=== PATIENT | male | born 2000 | race Caucasian/White ===

== ENCOUNTER 2018-08-21 20:57 | Emergency (ER) | payer BC ==
--- NOTE | 2018-08-21 21:19 | ER Report ---
History and Physical Time Seen By MD: 21:19 Hx. of Stated Complaint: patient states was driving 20mins ago, started to have painc attack, has sharp pain in left chest, numbness in hand, legs and face. HPI/ROS CHIEF COMPLAINT: Chest pain and shortness of breath, possible panic attack HISTORY OF PRESENT ILLNESS: This is a 18-year-old male. He was driving and started to have a panic attack. He has had these in the past although not this bad. He feels short of breath with chest pain. Some mild nausea with it as well. No fevers or chills, no sore throat runny nose or cough. Allergies: Coded Allergies: No Known Drug Allergies (Unverified , 08/21/18) Home Meds Active Scripts Hydroxyzine Hcl (HYDROXYZINE HCL) 25 Mg Tablet, 25 MG PO Q8H PRN for ANXIETY, #15 TAB 0 Refills Prov:RANDALL VILLALOBOS MD 08/22/18 Reviewed Nurses Notes: Yes Hx Substance Use Disorder: Yes (occassional marijauna use) Constitutional Vital Sign - Last 24 Hours 08/21/18 08/21/18 08/21/18 08/21/18 20:57 21:02 21:04 21:12 Temp 97.8 Pulse ??? 103 80 Resp 28 17 B/P (MAP) 150/108 (122) 150/108 Pulse Ox 100 99 O2 Delivery Room Air 08/21/18 08/21/18 08/21/18 08/21/18 21:27 21:30 21:42 21:57 Pulse 108 99 72 Resp 49 35 10 B/P (MAP) 140/106 (117) Pulse Ox 99 100 98 08/21/18 08/21/18 08/21/18 08/21/18 22:00 22:12 22:27 22:30 Pulse 67 ??? Resp 10 12 B/P (MAP) 127/88 (101) 127/82 (97) Pulse Ox 88 95 08/21/18 08/21/18 08/21/18 08/21/18 22:39 22:42 22:47 23:00 Pulse 65 76 Resp 17 21 B/P (MAP) 134/76 (95) 111/101 (104) Pulse Ox 94 98 08/21/18 08/21/18 08/21/18 08/21/18 23:02 23:17 23:30 23:32 Pulse ? Resp 29 16 17 B/P (MAP) 163/59 (93) Pulse Ox 98 95 96 08/21/18 08/22/18 23:47 00:11 Pulse ??? Resp 11 B/P (MAP) 125/81 (96) Pulse Ox 92 Intake and Output 08/21/18 08/21/18 08/22/18 15:00 23:00 07:00 Intake Total 1000 ml Balance 1000 ml Physical Exam General Appearance: Alert, very anxious in acute distress. Nontoxic in appearance. Eyes: Pupils equal and round no injection. ENT: Normal oral mucosa. Moist mucous membranes. Tympanic membranes are normal. Normal posterior oropharynx. Normal nasal mucosa. Neck: Neck is supple and non tender. Respiratory: Lungs are clear to auscultation. Cardiac: regular rate and rhythm normal peripheral perfusion. Gastrointestinal: Abdomen is soft and non tender, no masses, bowel sounds normal. Musculoskeletal: Extremities have full range of motion. Non tender. Skin: No rashes or lesions. DIFFERENTIAL DIAGNOSIS: After history and physical exam differential diagnosis was considered for chest pain and shortness breath, possible anxiety attack, possible acute coronary syndrome, pulmonary infectious process etc. Medical Decision Making Data Points Result Diagram: 08/21/18213808/21/182138 Laboratory Hematology Test 08/21/18 21:39 Red Blood Count 5.26 M/uL (4.00-5.60) Mean Corpuscular Volume 96.0 fL (80.0-96.0) Mean Corpuscular Hemoglobin 33.1 pg (26.0-33.0) Mean Corpuscular Hemoglobin Concent 34.4 g/dL (32.0-36.0) Red Cell Distribution Width 13.2 % (11.5-14.5) Mean Platelet Volume 9.6 fL (7.2-11.1) Neutrophils (%) (Auto) 78.3 % (39.4-72.5) Lymphocytes (%) (Auto) 17.4 % (17.6-49.6) Monocytes (%) (Auto) 3.8 % (4.1-12.4) Eosinophils (%) (Auto) 0.2 % (0.4-6.7) Basophils (%) (Auto) 0.3 % (0.3-1.4) Nucleated RBC Relative Count (auto) 0.7 /100WBC Neutrophils # (Auto) 9.1 K/uL (2.0-7.4) Lymphocytes # (Auto) 2.0 K/uL (1.3-3.6) Monocytes # (Auto) 0.4 K/uL (0.3-1.0) Eosinophils # (Auto) 0.0 K/uL (0.0-0.5) Basophils # (Auto) 0.0 K/uL (0.0-0.1) Nucleated RBC Absolute Count (auto) 0.08 K/uL D-Dimer Quantitative (PE/DVT) < 0.27 ug/ml (0-0.50) Sodium Level 138 mmol/L (137-145) Potassium Level 3.8 mmol/L (3.5-5.0) Chloride Level 102 mmol/L (98-107) Carbon Dioxide Level 23 mmol/L (22-30) Blood Urea Nitrogen 11 mg/dl (9-21) Creatinine 0.90 mg/dl (0.66-1.25) Glomerular Filtration Rate Calc > 60.0 Random Glucose 108 mg/dl (75-110) Calcium Level 10.1 mg/dl (8.4-10.2) Total Bilirubin 0.5 mg/dl (0.2-1.3) Aspartate Amino Transf (AST/SGOT) 38 U/L (0-35) Alanine Aminotransferase (ALT/SGPT) 49 U/L (0-56) Alkaline Phosphatase 80 U/L (0-126) Troponin I < 0.012 ng/ml Total Protein 8.0 g/dl (6.3-8.2) Albumin 5.1 g/dl (3.5-5.0) Chemistry Test 08/21/18 21:39 White Blood Count 11.7 k/uL (4.5-11.0) Red Blood Count 5.26 M/uL (4.00-5.60) Hemoglobin 17.4 g/dL (14.0-18.0) Hematocrit 50.5 % (42.0-52.0) Mean Corpuscular Volume 96.0 fL (80.0-96.0) Mean Corpuscular Hemoglobin 33.1 pg (26.0-33.0) Mean Corpuscular Hemoglobin Concent 34.4 g/dL (32.0-36.0) Red Cell Distribution Width 13.2 % (11.5-14.5) Platelet Count 335 K/uL (150-450) Mean Platelet Volume 9.6 fL (7.2-11.1) Neutrophils (%) (Auto) 78.3 % (39.4-72.5) Lymphocytes (%) (Auto) 17.4 % (17.6-49.6) Monocytes (%) (Auto) 3.8 % (4.1-12.4) Eosinophils (%) (Auto) 0.2 % (0.4-6.7) Basophils (%) (Auto) 0.3 % (0.3-1.4) Nucleated RBC Relative Count (auto) 0.7 /100WBC Neutrophils # (Auto) 9.1 K/uL (2.0-7.4) Lymphocytes # (Auto) 2.0 K/uL (1.3-3.6) Monocytes # (Auto) 0.4 K/uL (0.3-1.0) Eosinophils # (Auto) 0.0 K/uL (0.0-0.5) Basophils # (Auto) 0.0 K/uL (0.0-0.1) Nucleated RBC Absolute Count (auto) 0.08 K/uL D-Dimer Quantitative (PE/DVT) < 0.27 ug/ml (0-0.50) Glomerular Filtration Rate Calc > 60.0 Calcium Level 10.1 mg/dl (8.4-10.2) Total Bilirubin 0.5 mg/dl (0.2-1.3) Aspartate Amino Transf (AST/SGOT) 38 U/L (0-35) Alanine Aminotransferase (ALT/SGPT) 49 U/L (0-56) Alkaline Phosphatase 80 U/L (0-126) Troponin I < 0.012 ng/ml Total Protein 8.0 g/dl (6.3-8.2) Albumin 5.1 g/dl (3.5-5.0) Coagulation Test 08/21/18 21:39 D-Dimer Quantitative (PE/DVT) < 0.27 ug/ml EKG/Imaging EKG Interpretation 12 lead EKG: Rhythm: Sinus tachycardia, rate 101 [place]: normal QRS: normal ST segments: normal Imaging HISTORY: Chest pain and shortness of breath DATE: 08/21/2018 10:18 PM TECHNIQUE: CHEST PA LAT COMPARISON: none FINDINGS: The cardiomediastinal silhouette is of normal size and contour. No pleural effusion. No pneumothorax. No consolidation. The lungs are adequately expanded. IMPRESSION: No acute findings. Report Dictated By: Jaiden Haas MD at 08/21/2018 10:55 PM ED Course/Re-evaluation Clinical Indication for ER IV: IV Access ED Course Patient had a dose of Ativan which significantly helped his anxiety. Workup for chest pain and shortness breath was otherwise negative. Reviewed this with the patient. Starting him on some hydroxyzine for anxiety. Decision to Disposition Date: Aug 22, 2018 Decision to Disposition Time: 00:23 Depart Departure Latest Vital Signs Vital Signs Date Time Temp Pulse Resp B/P (MAP) Pulse Ox O2 Delivery O2 Flow Rate FiO2 08/22/18 00:11 125/81 (96) 08/21/18 23:47 ??? 11 92 08/21/18 21:04 97.8 Room Air Impression: Primary Impression: Panic attack Condition: Improved Disposition: HOME OR SELF-CARE New Scripts Hydroxyzine Hcl (HYDROXYZINE HCL) 25 Mg Tablet 25 MG PO Q8H PRN for ANXIETY, #15 TAB 0 Refills Prov: RANDALL VILLALOBOS MD 08/22/18 Patient Instructions: Panic Attack (ED) RANDALL VILLALOBOS MD Aug 21, 2018 21:19
[2018-08-21] MEDS ORDERED: NS(*) 0.9% 1000 ML BAG 1,000 ML IV ONE (21:24)
[2018-08-21] MEDS ORDERED: PANTOPRAZOLE SOD 40 MG IV VIAL IVP ONE (21:25)
[2018-08-21] MEDS ORDERED: LORazepam 2 MG/ML VIAL IVP ONE (21:25)
[2018-08-21] MEDS ORDERED: ASPIRIN 81 MG CHEW PO ONE (21:25)
--- NOTE | 2018-08-21 21:54 | EKG ---
FACILITY: [facility] PATIENT NAME: SYLVIE BAINS : [id number] MR: [id number] V: [id number] EXAM DATE: ORDERING PHYSICIAN: RANDALL VILLALOBOS TECHNOLOGIST: KASEY Test Reason : CP Blood Pressure : / mmHG Vent. Rate : 101 BPM Atrial Rate : 101 BPM P-R Int : 128 ms QRS Dur : 072 ms QT Int : 322 ms P-R-T Axes : 085 092 047 degrees QTc Int : 417 ms Sinus tachycardia Otherwise normal ECG Significant artifact present No previous ECGs available Confirmed by Samm Bhat ([id number]) on 08/21/2018 10:50:35 PM Referred By: Confirmed By:Samm Felix
[2018-08-21 21:59] LABS: PLATELET COUNT, AUTOMATED 335 K/uL (150-450)
--- NOTE | 2018-08-21 23:00 | RADIOLOGY IMAGING REPORT ---
FACILITY: [facility] PATIENT NAME: Mark Telles : 2000 MR: [id number] V: [id number] EXAM DATE: ORDERING PHYSICIAN: RANDALL VILLALOBOS TECHNOLOGIST: Location: [facility] Patient: Mark Telles : 2000 Visit/Account:[id number] Date of Sevice: 08/21/2018 HISTORY: Chest pain and shortness of breath DATE: 08/21/2018 10:18 PM TECHNIQUE: CHEST PA LAT COMPARISON: none FINDINGS: The cardiomediastinal silhouette is of normal size and contour. No pleural effusion. No pne umothorax. No consolidation. The lungs are adequately expanded. IMPRESSION: No acute findings. Report Dictated By: Jaiden Haas MD at 08/21/2018 10:55 PM Report E-Signed By: Jaiden Haas MD at 08/21/2018 10:56 PM WSN:[id number]
[2018-08-22] MEDS ORDERED: HYDR-4225 PO (00:25)
[2018-08-22] MEDS ORDERED: hydrOXYzine 25 MG TAB TH 2 TAB/BOTTLE PO ONE (00:25)
[2018-08-22 00:30] VITALS: BP 115/76
== END 2018-08-22 00:37 | disposition home or self-care (01) ==
LOC: ER 21:15
DX: F41.0 Panic disorder [episodic paroxysmal anxiety] (principal)
CPT/HCPCS: 71046; 84484; 85025; 85379; 93005; 96361; 96374; 96375; 99284; C9113; J2060; J7030; 82040; 82247; 82310; 82374; 82435; 82565; 82947; 84075; 84132; 84155; 84295; 84450; 84460; 84520

== ENCOUNTER → 2018-09-07 | Outpatient (REF) | payer BC ==
[~2018-09-07] MED LIST: HYDR-4225 PO
[2018-09-07 14:18] LABS: PLATELET COUNT, AUTOMATED 299 K/uL (150-450)
== END ==
PROVIDERS: ATTEND Nurse Practitioner Family
DX: F41.1 Generalized anxiety disorder (principal); R53.83 Other fatigue
CPT/HCPCS: 82040; 82247; 82310; 82374; 82435; 82565; 82947; 84075; 84132; 84155; 84270; 84295; 84403; 84450; 84460; 84520; 85025

== ENCOUNTER 2018-10-25 03:53 | Emergency (ER) | payer BC ==
[2018-10-25] MEDS ORDERED: LORazepam 2 MG/ML VIAL IVP ONE (04:05)
[2018-10-25] MEDS ORDERED: NS(*) 0.9% 1000 ML BAG 1,000 ML IV ONE (04:05)
--- NOTE | 2018-10-25 04:18 | ER Report ---
History and Physical Time Seen By MD: 03:51 Hx. of Stated Complaint: PATIENT REPORTS ANXIETY AND "PANICK ATTACK" THAT STARTED AT 0200. HPI/ROS CHIEF COMPLAINT: I think im having a panic attack HISTORY OF PRESENT ILLNESS: PT states that tonight he took an on line exam and got an A. Went to his room to watch Netflicks and started feeling light headed, Sob, chest pain, tingling in his face and hands. Pt called his parents and told to go to the emergency room. PT states a similar episode happened this winter and he was seen in the emergency room and told it was anxiety. After the ED visit when he was home he saw his pcp who started him on zoloft and gave him a testosterone booster since his labs showed low T. PT has since stopped the zoloft because he did not like how he felt on the medication. PT states since t hen he has always felt "a little anxious" but this is the first time he has felt panic since first episode. Pt has not been sick. PT states he has not slept well for 2 days because of anxiety over tonights exam. REVIEW OF SYSTEMS: Constitutional: No fever, no chills. Eyes: No discharge. ENT: + throat tightness Cardiovascular: + chest pain, + palpitations. Respiratory: No cough, + shortness of breath. Gastrointestinal: No abdominal pain, no vomiting. Genitourinary: No hematuria. Musculoskeletal: No back pain. Skin: No rashes. Neurological: No headache, +light headed, numbness to hands and face Allergies: Coded Allergies: No Known Drug Allergies (Unverified , 10/25/18) Home Meds Active Scripts Lorazepam (ATIVAN) 0.5 Mg Tablet, 0.5 MG PO Q12H PRN for ANXIETY/INSOMNIA, #10 TAB Prov:ANISHA PERES DO 10/25/18 Discontinued Scripts Hydroxyzine Hcl (HYDROXYZINE HCL) 25 Mg Tablet, 25 MG PO Q8H PRN for ANXIETY, #15 TAB 0 Refills Prov:RANDALL VILLALOBOS MD 08/22/18 Past Medical/Surgical History Pmhx: panic attack, Low T Pshx: kajal Reviewed Nurses Notes: Yes Old Medical Records Reviewed: Yes Hx Substance Use Disorder: Yes (occassional marijauna use) Hx Alcohol Use: Yes (occasional etoh) Constitutional Vital Sign - Last 24 Hours 10/25/18 03:57 Temp 97.7 Pulse 98 Resp 24 B/P (MAP) 154/108 Pulse Ox 98 O2 Delivery Room Air Physical Exam General Appearance: The patient is alert but hyperventilating, has no immediate need for airway protection and no signs of toxicity. Eyes: Pupils equal and round no pallor or injection, EOMI ENT: no pharyngeal erythema or exudates, Mucous membranes are moist, TM are nl b/l Respiratory: There are no retractions, lungs are clear to auscultation, Increased resp rate Cardiovascular: Regular rate and rhythm. pulses are equal and symmetrical Gastrointestinal: Abdomen is soft and non tender, no masses, bowel sounds normal, no guarding, no rigidity or rebound Neurological: Cranial nerves II-XII grossly intact, no sensory or motor loss Skin: Warm and dry, no rashes. Musculoskeletal: Neck is supple non tender, no vertebral tenderness Extremities are nontender, nonswollen and have full range of motion. DIFFERENTIAL DIAGNOSIS: After history and physical exam differential diagnosis was considered for anxiety, electrolyte abnl, hyperventilation syndrome, acs, pe, ptx, anemia Medical Decision Making Data Points Result Diagram: 10/25/18 0408 10/25/18 0408 Laboratory Hematology Test 10/25/18 04:08 Red Blood Count 5.59 M/uL (4.00-5.60) Mean Corpuscular Volume 93.0 fL (80.0-96.0) Mean Corpuscular Hemoglobin 32.5 pg (26.0-33.0) Mean Corpuscular Hemoglobin Concent 34.9 g/dL (32.0-36.0) Red Cell Distribution Width 11.9 % (11.5-14.5) Mean Platelet Volume 9.5 fL (7.2-11.1) Neutrophils (%) (Auto) 71.5 % (39.4-72.5) Lymphocytes (%) (Auto) 19.8 % (17.6-49.6) Monocytes (%) (Auto) 7.9 % (4.1-12.4) Eosinophils (%) (Auto) 0.3 % (0.4-6.7) Basophils (%) (Auto) 0.5 % (0.3-1.4) Nucleated RBC Relative Count (auto) 0.0 /100WBC Neutrophils # (Auto) 6.6 K/uL (2.0-7.4) Lymphocytes # (Auto) 1.8 K/uL (1.3-3.6) Monocytes # (Auto) 0.7 K/uL (0.3-1.0) Eosinophils # (Auto) 0.0 K/uL (0.0-0.5) Basophils # (Auto) 0.0 K/uL (0.0-0.1) Nucleated RBC Absolute Count (auto) 0.00 K/uL D-Dimer Quantitative (PE/DVT) < 0.27 ug/ml (0-0.50) Sodium Level 135 mmol/L (137-145) Potassium Level 3.8 mmol/L (3.5-5.0) Chloride Level 100 mmol/L (98-107) Carbon Dioxide Level 21 mmol/L (22-30) Blood Urea Nitrogen 17 mg/dl (9-21) Creatinine 0.90 mg/dl (0.66-1.25) Glomerular Filtration Rate Calc > 60.0 Random Glucose 87 mg/dl (75-110) Calcium Level 10.3 mg/dl (8.4-10.2) Troponin I < 0.012 ng/ml Chemistry Test 10/25/18 04:08 White Blood Count 9.2 k/uL (4.5-11.0) Red Blood Count 5.59 M/uL (4.00-5.60) Hemoglobin 18.1 g/dL (14.0-18.0) Hematocrit 52.0 % (42.0-52.0) Mean Corpuscular Volume 93.0 fL (80.0-96.0) Mean Corpuscular Hemoglobin 32.5 pg (26.0-33.0) Mean Corpuscular Hemoglobin Concent 34.9 g/dL (32.0-36.0) Red Cell Distribution Width 11.9 % (11.5-14.5) Platelet Count 339 K/uL (150-450) Mean Platelet Volume 9.5 fL (7.2-11.1) Neutrophils (%) (Auto) 71.5 % (39.4-72.5) Lymphocytes (%) (Auto) 19.8 % (17.6-49.6) Monocytes (%) (Auto) 7.9 % (4.1-12.4) Eosinophils (%) (Auto) 0.3 % (0.4-6.7) Basophils (%) (Auto) 0.5 % (0.3-1.4) Nucleated RBC Relative Count (auto) 0.0 /100WBC Neutrophils # (Auto) 6.6 K/uL (2.0-7.4) Lymphocytes # (Auto) 1.8 K/uL (1.3-3.6) Monocytes # (Auto) 0.7 K/uL (0.3-1.0) Eosinophils # (Auto) 0.0 K/uL (0.0-0.5) Basophils # (Auto) 0.0 K/uL (0.0-0.1) Nucleated RBC Absolute Count (auto) 0.00 K/uL D-Dimer Quantitative (PE/DVT) < 0.27 ug/ml (0-0.50) Glomerular Filtration Rate Calc > 60.0 Calcium Level 10.3 mg/dl (8.4-10.2) Troponin I < 0.012 ng/ml Coagulation Test 10/25/18 04:08 D-Dimer Quantitative (PE/DVT) < 0.27 ug/ml EKG/Imaging EKG Interpretation nsr @ 86 with sinus arrhythmia Imaging napd ED Course/Re-evaluation Clinical Indication for ER IV: Hydration, IV Access ED Course Check labs, ekg and cxr. Will give fluids and ativan. 10/25/2018 4:41:58 am Pt reexamined. Pt feeling much better "I no longer have any tingling or numbness and no sob or cp". I suspect pts symptoms were related to panic attack. Decision to Disposition Date: Oct 25, 2018 Decision to Disposition Time: 04:52 Depart Departure Latest Vital Signs Vital Signs Date Time Temp Pulse Resp B/P (MAP) Pulse Ox O2 Delivery O2 Flow Rate FiO2 10/25/18 03:57 97.7 98 24 154/108 98 Room Air Impression: Primary Impression: Panic attack Additional Impression: Hyperventilating Condition: Improved Disposition: HOME OR SELF-CARE Referrals: [facility] New Scripts Lorazepam (ATIVAN) 0.5 Mg Tablet 0.5 MG PO Q12H PRN for ANXIETY/INSOMNIA, #10 TAB Prov: ANISHA PERES DO 10/25/18 Departure Forms: ER Transition Record, Medications Reconciliation, Off Work/School Form, School or Work Release?: School Number of days to be released: 1 Patient Portal Information Patient Instructions: Hyperventilation (ED), Panic Attack (ED) Additional Instructions: Your blood work, ekg and chest xray were stable. You had a panic attack. Recommend you follow up with a therapist. You may take one Ativan one every 12 hours as needed if episode reoccur Problem Qualifiers ANISHA PERES DO Oct 25, 2018 04:18
[2018-10-25 04:30] LABS: PLATELET COUNT, AUTOMATED 339 K/uL (150-450)
[2018-10-25] MEDS ORDERED: LORA-1455 PO (04:45)
--- NOTE | 2018-10-25 04:48 | RADIOLOGY IMAGING REPORT ---
FACILITY: [facility] [place] PATIENT NAME: Mark Telles : 2000 MR: [id number] V: [id number] EXAM DATE: ORDERING PHYSICIAN: ANISHA PERES TECHNOLOGIST: [facility] Patient: Mark Telles : 2000 Visit/Account:[id number] Date of Sevice: 10/25/2018 CHEST: Indication: Chest pain and dyspnea. Technique: Frontal and lateral views were obtained. Comparison: 08/21/2018 Skeletal and soft tissue structures: Intact and unremarkable. Heart and mediastinum: Within normal limits. Lung wu: Well expanded and clear. Pleural spaces: Unremarkable. Impression: No acute process or significant change. Report Dictated By: Danish Conteh MD at 10/25/2018 4:42 AM Report E-Signed By: Danish Conteh MD at 10/25/2018 4:45 AM WSN:[id number]
[2018-10-25 04:50] VITALS: BP 126/95
--- NOTE | 2018-10-25 04:57 | EKG ---
FACILITY: [facility] PATIENT NAME: SYLVIE BAINS : [id number] MR: [id number] V: [id number] EXAM DATE: ORDERING PHYSICIAN: ANISHA PERES TECHNOLOGIST: KASEY Test Reason : CP Blood Pressure : / mmHG Vent. Rate : 085 BPM Atrial Rate : 085 BPM P-R Int : 152 ms QRS Dur : 086 ms QT Int : 376 ms P-R-T Axes : 080 089 078 degrees QTc Int : 447 ms Normal sinus rhythm with sinus arrhythmia Normal ECG When compared with ECG of 21-AUG-2018 21:27, ST more elevated in Inferior leads Nonspecific T wave abnormality no longer evident in Inferior leads Confirmed by TRINA GUTIERREZ ([id number]) on 10/25/2018 6:53:14 AM Referred By: Confirmed By:TRINA GUTIERREZ
== END 2018-10-25 05:05 | disposition home or self-care (01) ==
LOC: ER 04:00
DX: F41.0 Panic disorder [episodic paroxysmal anxiety] (principal); R06.4 Hyperventilation
CPT/HCPCS: 71046; 84484; 85025; 85379; 93005; 96361; 96374; 99284; J2060; J7030; 82310; 82374; 82435; 82565; 82947; 84132; 84295; 84520